=== PATIENT | male | born 1995 ===

== ENCOUNTER 2017-04-05 15:50 | Emergency (ER) | payer MEDICAID ==
[2017-04-05 16:16] VITALS: BMI 25.8
[2017-04-05 18:08] LABS: BASO # 0.1 K/uL (0.0-0.2); BASO % 1.1 % (0.0-2.0); EOS # 0.1 K/uL (0.0-0.7); EOS % 0.8 % (0.0-4.0); HEMATOCRIT 44.8 % (35.0-51.0); LYMPH # 2.6 K/uL (1.0-4.3); LYMPH % 20.2 % (20.0-40.0); MEAN CELL VOLUME 88.3 fL (80.0-94.0); MEAN CORPUSCULAR HEMOGLOBIN 29.9 pg (27.0-31.0); MEAN CORPUSCULAR HGB CONC 33.9 g/dL (33.0-37.0); MEAN PLATELET VOLUME 9.5 fL (7.2-11.7); MONO # 0.7 K/uL (0.0-0.8); MONO % 5.2 % (0.0-10.0); RED CELL DISTRIBUTION WIDTH 13.1 % (11.5-14.5); WHITE BLOOD COUNT 12.9 K/uL (4.8-10.8)
--- NOTE | 2017-04-05 18:09 | C.PDOC ---
History Of Present Illness 21 year old male, with PMHx of polysubstance abuse, is sent to ED by [facility] for evaluation of abnormal behavior, including episode of banging his head on the wall, and masterbating in front of the staff there yesterday. Pt states he had a "mental breakdown" or "anxiety attack" yesterday and regrets his actions, and now is calm and cooperative. Denies any psychiatric history. Otherwise, patient denies auditory/visual hallucination, SI, HI, anxiety, or any physical complaints at this time. Time Seen by Provider: 04/05/17 17:35 Chief Complaint (Nursing): Psychiatric Evaluation History Per: Patient History/Exam Limitations: no limitations Onset/Duration Of Symptoms: Days Current Symptoms Are (Timing): Still Present Suicide/Self Injury Attempted (Context): None Severity: None Pain Scale Rating Of: 0 Associated Symptoms: denies: Anxiety, Depression, Suicidal Thoughts, Suicidal Plan Involuntary Hold By: None Recent travel outside of the [place]: No Additional History Per: Patient Past Medical History Reviewed: Historical Data, Nursing Documentation, Vital Signs Vital Signs: Last Vital Signs Temp 98.0 F 04/05/17 19:04 Pulse 57 L 04/05/17 20:19 Resp 18 04/05/17 20:19 BP 112/47 L 04/05/17 20:19 Pulse Ox 99 04/05/17 21:02 Family History: States: Unknown Family Hx - Social History Hx Alcohol Use: (USED TO PER PATIENT) Hx Substance Use: (USED TO PRIOR TO [facility]) - Immunization History Hx Tetanus Toxoid Vaccination: No Hx Influenza Vaccination: No Hx Pneumococcal Vaccination: No Review Of Systems Except As Marked, All Systems Reviewed And Found Negative. Constitutional: Negative for: Fever, Chills Cardiovascular: Negative for: Chest Pain, Palpitations Respiratory: Negative for: Cough, Shortness of Breath Gastrointestinal: Negative for: Nausea, Vomiting, Abdominal Pain Neurological: Negative for: Weakness, Numbness, Headache, Dizziness Psych: Negative for: Anxiety, Depression, Suicidal ideation Physical Exam - Physical Exam Appears: Non-toxic, No Acute Distress, Other (calm, cooperative) Skin: Normal Color, Warm, Dry Head: Atraumatic, Normacephalic, Abrasion (forehead) Eye(s): bilateral: Normal Inspection Oral Mucosa: Moist Neck: Normal ROM, Supple Chest: Symmetrical Cardiovascular: Rhythm Regular (bradycardic) Respiratory: Normal Breath Sounds, No Rales, No Rhonchi, No Wheezing Gastrointestinal/Abdominal: Soft, No Tenderness Extremity: Normal ROM Neurological/Psych: Oriented x3, Normal Speech, Other (bizarre affect) ED Course And Treatment - Laboratory Results Result Diagrams: 04/05/17 18:04 04/05/17 18:04 Lab Interpretation: Normal (tox neg) O2 Sat by Pulse Oximetry: 99 (RA) Pulse Ox Interpretation: Normal Reevaluation Time: 21:00 Reassessment Condition: Improved - Physician Consult Information Outcome Of Conversation: d/w Crisis, unable to return pt to [facility] due to poor behavior. Pt was court mandated in [place] of incarceration but non- compliant w rules and regs and conduct there and d/c'd from [facility] and not welcome back today. Medical Decision Making Medical Decision Making: Blood work, UA ordered and reviewed. bizarre behavior @ [facility]- Calm and cooperative in ED U-tox neg low concern for withdrawal issues. May be d/c to home. Medically Cleared for Incarceration as needed. Disposition Doctor Will See Patient In The: Office Counseled Patient/Family Regarding: Studies Performed, Diagnosis - Disposition Referrals: Alcoholics Anonymous [Outside] [facility] [Outside] [facility] [Outside] [facility] [Outside] Disposition: HOME/ ROUTINE Disposition Time: 21:01 Condition: GOOD Additional Instructions: No psychiatric indication for inpatient Psych eval @ [facility] today Medically Cleared for incarceration as needed Please follow-up with our outpatient psych services for continued assistance with your substance abuse issues. Seek AA- a very helpful program for addiction. Instructions: Conduct Disorder (ED) Forms: [email or web address] (Macedonian) - Clinical Impression Clinical Impression: Behavior disturbance - Scribe Statement The provider has reviewed the documentation as recorded by the Scribe Una Ruiz All medical record entries made by the Scribe were at my direction and personally dictated by me. I have reviewed the chart and agree that the record accurately reflects my personal performance of the history, physical exam, medical decision making, and the department course for this patient. I have also personally directed, reviewed, and agree with the discharge instructions and disposition.
[2017-04-05 18:12] LABS: RBC URINE 1 /hpf (0-3); URINE BILIRUBIN NEGATIVE (NEGATIVE); URINE BLOOD NEGATIVE (NEGATIVE); URINE COLOR Yellow (YELLOW); URINE GLUCOSE (UA) NORMAL (Normal); URINE KETONE NEGATIVE (NEGATIVE); URINE LEUKOCYTE ESTERASE NEG Leu/uL (Negative); URINE PROTEIN NEGATIVE (NEGATIVE); WBC URINE < 1 /hpf (0-5)
[2017-04-05 18:52] LABS: ALB/GLOB RATIO 1.4 (1.0-2.1); ALCOHOL SERUM < 10 mg/dl (0-10); ALKALINE PHOSPHATASE 73 U/L (38-126); ALT/SGPT 71 U/L (21-72); AST/SGOT 136 U/L (17-59); BILIRUBIN,TOTAL 0.4 mg/dL (0.2-1.3); BLOOD UREA NITROGEN 13 mg/dL (9-20); CARBON DIOXIDE 26 mmol/L (22-30); CHLORIDE 101 mmol/L (98-107); GFR AFRICAN-AMERICAN > 60; GLUCOSE,RANDOM 99 mg/dL (75-110); POTASSIUM 4.2 mmol/L (3.6-5.2); SODIUM 135 mmol/L (132-148); TOTAL PROTEIN 7.3 g/dL (6.3-8.3)
[2017-04-05 19:05] VITALS: RESP 18; TEMP 98
[2017-04-05 20:22] VITALS: BP 112/47; PULSE 57
[2017-04-05 21:02] VITALS: O2SAT 99
== END 2017-04-05 21:30 | disposition home or self-care (01) ==
LOC: C.ER 15:50
DX: F91.9 Conduct disorder, unspecified (principal)